=== PATIENT | male | born 1960 | race African-American/Black ===

== ENCOUNTER 2017-09-07 15:25 | Emergency (ER) | payer MEDICAID, OTHER ==
[~2017-09-07] VITALS: Ht 170.2 cm; Wt 71.0 kg
[2017-09-07] MEDS ORDERED: TETANUS, DIPHTHERIA, PERTUSSIS VAC/PF 0.5ML (>7YR OLD) IM ONE (16:30)
[2017-09-07] MEDS ORDERED: BACITRACIN ZINC OINT UDPKT TOP ONE (16:45)
[2017-09-07 18:05] VITALS: BP 172/120
== END 2017-09-07 18:18 | disposition home or self-care (01) ==
LOC: ER 15:48
DX: S70.02XA Contusion of left hip, initial encounter (principal); S50.02XA Contusion of left elbow, initial encounter; F12.10 Cannabis abuse, uncomplicated; V03.19XA Pedestrian with other conveyance injured in collision with car, pick-up truck or van in traffic accident, initial encounter; Y93.55 Activity, bike riding; Y92.89 Other specified places as the place of occurrence of the external cause
CPT/HCPCS: 70450; 72125; 73080; 73502; 90471; 90715; 99284; X7700; Z7610

== ENCOUNTER 2024-07-05 22:44 | Inpatient (IN) | payer MEDICAID ==
[~2024-07-05] VITALS: Ht 167.6 cm; Wt 70.3 kg
[~2024-07-05 22:44] MED LIST: AMLO10TA80 MT; ATOR10TA69 MT; METF-873 PO
[2024-07-05 23:00] VITALS: BP 109/78; PULSE 84; RESP 20; TEMP 36.55848; O2SAT 100
[2024-07-05] MEDS ORDERED: ACETAMINOPHEN 325MG TABLET PO PRN (23:45)
[2024-07-05] MEDS ORDERED: NALOXONE HCL 0.4MG/ML 1ML VIAL IV PRN (23:45)
[2024-07-05] MEDS ORDERED: ONDANSETRON HCL 4MG/2ML INJ IV PRN (23:45)
[2024-07-05] MEDS ORDERED: MORPHINE SULFATE 4 MG/ML INJ (FOR IV/IM USE) IV PRN (23:45)
[2024-07-06] MEDS ORDERED: DEXTROSE 50% WATER 50ML SYRINGE IV PRN
[2024-07-06 00:04] VITALS: BP 109/78; PULSE 84; RESP 20; TEMP 36.5848
[2024-07-06] MEDS: BLOOD SUGAR DIAGNOSTIC STRIP TEST SCH (06:30)
[2024-07-06 07:23] LABS: CHLORIDE 103 mEq/L (98-107); POTASSIUM 4.7 mEq/L (3.5-5.1); SODIUM 135 mEq/L (136-145)
[2024-07-06 07:24] LABS: CALCIUM 8.5 mg/dL (8.7-10.4); CARBON DIOXIDE 27 mEq/L (21-32)
[2024-07-06 07:25] LABS: HEMATOCRIT. 40.5 % (42.0-52.0); HEMOGLOBIN. 13.3 g/dL (14.0-18.0); MEAN CORPUSCULAR HEMOGLOBIN 29.1 pg (28.0-32.0); MEAN CORPUSCULAR HGB CONC 32.7 g/dL (31.0-37.0); MEAN CORPUSCULAR VOLUME 88.9 fL (80.0-94.0); MEAN PLATELET VOLUME 8.8 fl (7.4-10.4); PLATELET 171 x1000/uL (130-400); RED BLOOD CELL COUNT 4.56 mill/uL (4.7-6.1); RED CELL DISTRIBUTION WIDTH 14.4 % (11.6-14.6); WHITE BLOOD COUNT 6.4 x1000/uL (4.5-11.0)
[2024-07-06 07:29] LABS: GLUCOSE 94 mg/dL (70-105); UREA NITROGEN BLOOD 35 mg/dL (9-23)
[2024-07-06 07:31] LABS: ALANINE AMINOTRANSFERASE 82 IU/L (10-49); ALBUMIN 3.1 g/dL (3.2-4.8); ASPARTATE AMINOTRANSFERASE 42 IU/L (<34); BILIRUBIN TOTAL 0.6 mg/dL (0.1-1.0)
[2024-07-06 08:03] LABS: DIFFERENTIAL COMMENT 1
[2024-07-06 08:08] LABS: PROTEIN TOTAL 5.6 g/dL (6.0-8.3)
[2024-07-06] MEDS: AMLODIPINE 10MG TABLET PO SCH (09:00)
[2024-07-06] MEDS ORDERED: HYDROCODONE/ACETAMINOPHEN 5/325MG TABLET PO PRN ×2 (09:00→09:45)
[2024-07-06] MEDS: INSULIN LISPRO 100 UNITS/ML SUBCUT SCH (09:00)
[2024-07-06] MEDS: LISINOPRIL 20MG TABLET PO SCH (09:00)
[2024-07-06] MEDS: QUETIAPINE FUMARATE 25MG TABLET PO SCH (10:57)
[2024-07-06] MEDS: ENOXAPARIN 40MG/0.4ML SYR SUBCUT SCH (10:57)
[2024-07-06] MEDS: HYDROCODONE/ACETAMINOPHEN 10/325MG TABLET PO PRN (10:59)
[2024-07-06] MEDS: NAPROXEN 375MG TABLET PO SCH (11:19)
[2024-07-06] MEDS: ASPIRIN 81MG TABLET PO SCH (11:19)
[2024-07-06 16:39] LABS: PLATELET ESTIMATE NORMAL
[2024-07-06 20:00] VITALS: BP 110/79; PULSE 89; RESP 20; TEMP 36.50292; O2SAT 98
[2024-07-06] MEDS: FAMOTIDINE 20MG TABLET PO SCH (22:04)
[2024-07-07 09:00] VITALS: BP 121/70; PULSE 85; RESP 19; TEMP 36.6696; O2SAT 99
[2024-07-07 20:00] VITALS: BP 130/92; PULSE 89; RESP 18; TEMP 36.44736; O2SAT 98
[2024-07-08] MEDS: ALPRAZOLAM 0.5 MG TABLET PO PRN (01:13)
[2024-07-08 08:00] VITALS: BP 122/73; PULSE 87; RESP 20; TEMP 36.50292; O2SAT 100
[2024-07-08 20:00] VITALS: BP 123/79; PULSE 82; RESP 18; TEMP 36.78072; O2SAT 98
[2024-07-08] MEDS: QUETIAPINE FUMARATE 25MG TABLET PO SCH (20:46)
[2024-07-09 06:34] VITALS: BP 115/81; PULSE 78; RESP 20; O2SAT 98
[2024-07-09 08:00] VITALS: BP 112/80; PULSE 78; RESP 20; TEMP 37.05852; O2SAT 98
[2024-07-09 10:42] VITALS: BP 112/80; PULSE 78; RESP 20; TEMP 37.05852; O2SAT 98
[2024-07-09 10:45] VITALS: BP 100/61; PULSE 90
[2024-07-09] MEDS: QUETIAPINE FUMARATE 25MG TABLET PO SCH (10:47)
[2024-07-09 20:00] VITALS: BP 106/72; PULSE 94; RESP 19; TEMP 36.50292; O2SAT 97
[2024-07-10 07:23] LABS: CHLORIDE 103 mEq/L (98-107); SODIUM 136 mEq/L (136-145)
[2024-07-10 07:24] LABS: CALCIUM 8.6 mg/dL (8.7-10.4); CARBON DIOXIDE 28 mEq/L (21-32)
[2024-07-10 07:29] LABS: CREATININE 1.2 mg/dL (0.6-1.3); GLUCOSE 80 mg/dL (70-105); UREA NITROGEN BLOOD 30 mg/dL (9-23)
[2024-07-10 07:31] LABS: ALANINE AMINOTRANSFERASE 73 IU/L (10-49); ALBUMIN 3.3 g/dL (3.2-4.8); ASPARTATE AMINOTRANSFERASE 44 IU/L (<34); BILIRUBIN TOTAL 0.4 mg/dL (0.1-1.0); PROTEIN TOTAL 5.5 g/dL (6.0-8.3)
[2024-07-10 07:37] LABS: HEMATOCRIT 36.1 % (42.0-52.0); HEMOGLOBIN 11.8 g/dL (14.0-18.0); MEAN CORPUSCULAR HEMOGLOBIN 29.3 pg (28.0-32.0); MEAN CORPUSCULAR HGB CONC 32.7 g/dL (31.0-37.0); MEAN CORPUSCULAR VOLUME 89.6 fL (80.0-94.0); PLATELET 221 x1000/uL (130-400); RED BLOOD CELL COUNT 4.03 mill/uL (4.7-6.1); RED CELL DISTRIBUTION WIDTH 14.3 % (11.6-14.6); WHITE BLOOD COUNT 5.5 x1000/uL (4.5-11.0)
[2024-07-10 08:00] VITALS: BP 114/72; PULSE 68; RESP 18; TEMP 36.55848; O2SAT 99
[2024-07-10 20:00] VITALS: BP 102/70; PULSE 91; RESP 18; TEMP 36.114; O2SAT 96
[2024-07-11 08:00] VITALS: BP 133/86; PULSE 83; RESP 17; TEMP 36.22512; O2SAT 97
[2024-07-11 20:00] VITALS: BP 102/71; PULSE 68; RESP 20; TEMP 36.3918; O2SAT 98
[2024-07-12 08:00] VITALS: BP 109/65; PULSE 72; RESP 18; TEMP 36.114; O2SAT 100
[2024-07-12] MEDS: LACTULOSE 20G/30ML UDC PO SCH (16:00)
[2024-07-12 20:00] VITALS: BP 117/69; PULSE 84; RESP 17; TEMP 36.6696; O2SAT 95
[2024-07-12] MEDS ORDERED: NA PHOS,M-B/NA PHOS,DI-BA ENEMA 118ML PR PRN (20:30)
[2024-07-12] MEDS ORDERED: BISACODYL 5MG TABLET PO PRN (20:30)
[2024-07-12] MEDS: DOCUSATE SODIUM SUGAR FREE 100MG/10ML UDC NG SCH (21:00)
[2024-07-12] MEDS: ACETAMINOPHEN 325MG TABLET PO PRN (21:05)
[2024-07-13 08:00] VITALS: BP 117/63; PULSE 79; RESP 18; TEMP 36.22512; O2SAT 99
[2024-07-13] MEDS: HYDROCODONE/ACETAMINOPHEN 10/325MG TABLET PO PRN (13:37)
[2024-07-13 20:00] VITALS: BP 106/66; PULSE 61; RESP 18; TEMP 36.3918; O2SAT 97
[2024-07-14 08:00] VITALS: BP 135/81; PULSE 71; RESP 20; TEMP 37.00296; O2SAT 99
[2024-07-14 09:00] VITALS: BP 101/62; PULSE 70; RESP 19; TEMP 36.6696; O2SAT 98
[2024-07-14 21:00] VITALS: BP 104/64; PULSE 64; RESP 19; TEMP 36.78072; O2SAT 98
[2024-07-15 08:00] VITALS: BP 107/65; PULSE 83; RESP 20; TEMP 36.6696; O2SAT 98
[2024-07-15 08:14] LABS: CHLORIDE 107 mEq/L (98-107); POTASSIUM 5.1 mEq/L (3.5-5.1); SODIUM 137 mEq/L (136-145)
[2024-07-15 08:15] LABS: CARBON DIOXIDE 27 mEq/L (21-32)
[2024-07-15 08:16] LABS: CALCIUM 8.9 mg/dL (8.7-10.4)
[2024-07-15 08:20] LABS: CREATININE 1.2 mg/dL (0.6-1.3); GLUCOSE 90 mg/dL (70-105)
[2024-07-15 08:21] LABS: UREA NITROGEN BLOOD 37 mg/dL (9-23)
[2024-07-15 08:35] LABS: HEMATOCRIT. 32.2 % (42.0-52.0); HEMOGLOBIN. 10.7 g/dL (14.0-18.0); MEAN CORPUSCULAR HEMOGLOBIN 29.7 pg (28.0-32.0); MEAN CORPUSCULAR HGB CONC 33.1 g/dL (31.0-37.0); MEAN CORPUSCULAR VOLUME 89.7 fL (80.0-94.0); MEAN PLATELET VOLUME 7.5 fl (7.4-10.4); PLATELET 270 x1000/uL (130-400); RED BLOOD CELL COUNT 3.59 mill/uL (4.7-6.1); RED CELL DISTRIBUTION WIDTH 14.7 % (11.6-14.6); WHITE BLOOD COUNT 4.6 x1000/uL (4.5-11.0)
[2024-07-15 08:51] LABS: DIFFERENTIAL COMMENT 1
[2024-07-15 15:21] LABS: PLATELET ESTIMATE NORMAL
[2024-07-15 20:00] VITALS: BP 133/72; PULSE 78; RESP 16; TEMP 37.28076; O2SAT 99
[2024-07-16 08:00] VITALS: BP 155/83; PULSE 75; RESP 20; TEMP 37.00296; O2SAT 99
[2024-07-16 20:00] VITALS: BP 109/69; PULSE 93; RESP 18; TEMP 36.33624; O2SAT 99
[2024-07-17 08:00] VITALS: BP 138/78; PULSE 64; RESP 18; TEMP 36.3918; O2SAT 99
[2024-07-17] MEDS ORDERED: NALOXONE HCL 0.4MG/ML VIAL IV PRN (15:45)
[2024-07-17 20:00] VITALS: BP 116/65; PULSE 74; RESP 18; TEMP 36.28068; O2SAT 97
[2024-07-18 08:00] VITALS: BP 126/86; PULSE 86; RESP 18; TEMP 36.28068; O2SAT 97
[2024-07-18 20:00] VITALS: BP 112/76; PULSE 77; RESP 18; TEMP 36.50292; O2SAT 97
[2024-07-18] MEDS: HYDROCODONE/ACETAMINOPHEN 5/325MG TABLET PO PRN (21:43)
[2024-07-19 08:00] VITALS: BP 126/78; PULSE 74; RESP 20; TEMP 36.61404; O2SAT 98
[2024-07-19 21:00] VITALS: BP 129/68; PULSE 77; RESP 18; TEMP 36.6696; O2SAT 99
[2024-07-20 08:00] VITALS: BP 150/82; PULSE 71; RESP 18; TEMP 36.22512; O2SAT 97
[2024-07-20] MEDS: ENOXAPARIN 40MG/0.4ML SYR SUBCUT SCH (09:53)
[2024-07-20 20:00] VITALS: BP 130/83; PULSE 101; RESP 18; TEMP 36.61404; O2SAT 95
[2024-07-21] MEDS: HYDROCODONE/ACETAMINOPHEN 5/325MG TABLET PO PRN (05:33)
[2024-07-21 07:00] LABS: CARBON DIOXIDE 27 mEq/L (21-32); CHLORIDE 108 mEq/L (98-107); POTASSIUM 4.5 mEq/L (3.5-5.1); SODIUM 141 mEq/L (136-145)
[2024-07-21 07:05] LABS: CREATININE 1.3 mg/dL (0.6-1.3)
[2024-07-21 07:06] LABS: ALANINE AMINOTRANSFERASE 53 IU/L (10-49); GLUCOSE 162 mg/dL (70-105); UREA NITROGEN BLOOD 33 mg/dL (9-23)
[2024-07-21 07:07] LABS: ALBUMIN 3.5 g/dL (3.2-4.8)
[2024-07-21 07:08] LABS: ASPARTATE AMINOTRANSFERASE 37 IU/L (<34); BILIRUBIN TOTAL 0.3 mg/dL (0.1-1.0); PROTEIN TOTAL 5.7 g/dL (6.0-8.3)
[2024-07-21 07:11] LABS: HEMATOCRIT 29.4 % (42.0-52.0); HEMOGLOBIN 9.7 g/dL (14.0-18.0); MEAN CORPUSCULAR HEMOGLOBIN 29.5 pg (28.0-32.0); MEAN CORPUSCULAR HGB CONC 32.9 g/dL (31.0-37.0); MEAN CORPUSCULAR VOLUME 89.7 fL (80.0-94.0); PLATELET 372 x1000/uL (130-400); RED BLOOD CELL COUNT 3.28 mill/uL (4.7-6.1); RED CELL DISTRIBUTION WIDTH 15.2 % (11.6-14.6); WHITE BLOOD COUNT 4.3 x1000/uL (4.5-11.0)
[2024-07-21 08:00] VITALS: BP 115/75; PULSE 98; RESP 19; TEMP 36.83628; O2SAT 99
[2024-07-21 20:00] VITALS: BP 130/84; PULSE 88; RESP 18; TEMP 36.28068; O2SAT 98
[2024-07-22 08:00] VITALS: BP 140/76; PULSE 73; RESP 20; TEMP 36.61404; O2SAT 100
[2024-07-22 20:00] VITALS: BP 133/77; PULSE 79; RESP 18; TEMP 36.22512; O2SAT 99
[2024-07-23 08:00] VITALS: BP 145/75; PULSE 76; RESP 20; TEMP 36.89184; O2SAT 95
[2024-07-23] MEDS: DOCUSATE SODIUM SUGAR FREE 100MG/10ML UDC PO SCH (09:00)
[2024-07-23 21:00] VITALS: BP 121/81; PULSE 94; RESP 18; TEMP 36.55848; O2SAT 97
[2024-07-24 08:00] VITALS: BP 138/65; PULSE 66; RESP 20; TEMP 36.33624; O2SAT 98
[2024-07-24 20:00] VITALS: BP 151/76; PULSE 86; RESP 18; TEMP 36.3918; O2SAT 100
[2024-07-25 08:00] VITALS: BP 135/77; PULSE 66; RESP 18; TEMP 36.33624; O2SAT 96
[2024-07-25 21:00] VITALS: BP 149/86; PULSE 58; RESP 18; TEMP 36.50292; O2SAT 95
[2024-07-26 09:00] VITALS: BP 125/80; PULSE 71; RESP 19; TEMP 36.61404; O2SAT 99
[2024-07-26 20:00] VITALS: BP 161/116; PULSE 62; RESP 19; TEMP 38.39196; O2SAT 96
[2024-07-26] MEDS: CLONIDINE 0.1MG TABLET PO PRN (20:56)
[2024-07-27 08:00] VITALS: BP 148/89; PULSE 70; RESP 17; TEMP 36.33624; O2SAT 96
[2024-07-28 08:00] VITALS: BP 140/64; PULSE 77; RESP 20; TEMP 36.72516; O2SAT 100
[2024-07-28 08:28] VITALS: BP 140/64; PULSE 77; RESP 18; TEMP 36.72516; O2SAT 100
[2024-07-28] MEDS ORDERED: NALOXONE HCL 0.4MG/ML VIAL IV PRN (10:15)
[2024-07-28] MEDS: HYDROCODONE/ACETAMINOPHEN 5/325MG TABLET PO PRN (11:52)
[2024-07-28 20:00] VITALS: BP 135/74; PULSE 57; RESP 18; TEMP 36.78072; O2SAT 97
[2024-07-29 08:13] VITALS: BP 149/86; PULSE 79; RESP 18; TEMP 36.61404; O2SAT 98
[2024-07-29] MEDS: HYDROCODONE/ACETAMINOPHEN 10/325MG TABLET PO PRN (15:44)
[2024-07-29 20:00] VITALS: BP 137/86; PULSE 74; RESP 18; TEMP 37.05852; O2SAT 99
[2024-07-30 08:00] VITALS: BP 120/64; PULSE 90; RESP 18; TEMP 36.22512; O2SAT 95
[2024-07-30 20:00] VITALS: BP 162/76; PULSE 80; RESP 19; TEMP 38.6142; O2SAT 97
[2024-07-30] MEDS: MAGNESIUM/ALUMINUM HYDROXIDE/SIMETHICONE 30ML UDC PO PRN (22:55)
[2024-07-31 08:00] VITALS: BP 149/90; PULSE 65; RESP 18; TEMP 36.33624; O2SAT 99
[2024-07-31] MEDS ORDERED: NAPR-679 PO (09:17)
[2024-07-31] MEDS ORDERED: ASPI-1160 PO (09:17)
[2024-07-31] MEDS ORDERED: LISI20TA31 PO (09:17)
[2024-07-31] MEDS ORDERED: QUET25TA PO (09:17)
[2024-07-31 12:06] VITALS: BP 136/88; PULSE 72; TEMP 98.4; O2SAT 95
== END 2024-07-31 13:18 | DRG 347 ==
PROVIDERS: ADMIT Psychiatry & Neurology Neurology; ATTEND Internal Medicine
DX: M48.02 Spinal stenosis, cervical region (principal); G82.50 Quadriplegia, unspecified; G95.89 Other specified diseases of spinal cord; N17.9 Acute kidney failure, unspecified; E11.9 Type 2 diabetes mellitus without complications; I10 Essential (primary) hypertension; M47.9 Spondylosis, unspecified; M50.10 Cervical disc disorder with radiculopathy, unspecified cervical region; R13.10 Dysphagia, unspecified; M19.011 Primary osteoarthritis, right shoulder; R60.9 Edema, unspecified; R32 Unspecified urinary incontinence; R06.00 Dyspnea, unspecified; R07.9 Chest pain, unspecified; R53.1 Weakness; M62.82 Rhabdomyolysis; F39 Unspecified mood [affective] disorder; F91.9 Conduct disorder, unspecified; F17.200 Nicotine dependence, unspecified, uncomplicated; I69.30 Unspecified sequelae of cerebral infarction; Z79.899 Other long term (current) drug therapy; Z79.84 Long term (current) use of oral hypoglycemic drugs; Z91.A48 Caregiver's other noncompliance with patient's medication regimen for other reason
CPT/HCPCS: 36415; 74230; 80048; 80053; 82962; 85025; 85027; 92523; 92610; 92611; 97110; 97112; 97116; 97150; 97162; 97166; 97530; 97535; 97542; J1650; J1815